=== PATIENT | male | born 1990 | race Caucasian/White ===

== ENCOUNTER 2022-03-19 12:07 | Emergency (ER) | payer OTHER, SELFPAY ==
[2022-03-19 12:15] VITALS: BP 113/76; PULSE 79; RESP 18; TEMP 36.9; O2SAT 99
--- NOTE | 2022-03-19 12:44 | ED.NAVMDI ---
HPI - Nausea/Vomiting/Diarrhea General Chief complaint: Nausea/Vomiting/Diarrhea Stated complaint: nausea, diahrrea Time Seen by Provider: 03/19/22 12:40 Source: patient, RN notes reviewed and old records reviewed History of Present Illness HPI Narrative: 32-year-old male who presents to [facility] care with complaints of nausea and vomiting and diarrhea, and fatigue for the past 2 days, he states also that his son has had similar symptoms. Patient reports he has vomited once today and has had 5 loose stools had temperature of 99.9F this morning. Patient report that he has not had COVID vaccinations or Flu shot this year. Patient denies any body aches at this time or any acute abdominal pain. He states that he took home COVID test yesterday that was negative. MD elicited complaint: nausea, vomiting and diarrhea Related Data Allergies Allergy/AdvReac Type Severity Reaction Status Date / Time amoxicillin Allergy Severe Anaphylactic Verified 06/11/19 18:49 Shock Penicillins Allergy Severe Anaphylactic Verified 06/11/19 18:49 Shock Sulfa (Sulfonamide Allergy Unknown Verified 06/11/19 18:49 Antibiotics) Grass Allergy Unknown Uncoded 06/11/19 18:49 Review of Systems Review of Systems: CONSTITUTIONAL: Low grade temperature fever,no chills, or sweats. EYES: Denies visual changes, redness, or discharge. ENT: Denies rhinorrhea, congestion, sore throat, or otalgia. CARDIOVASCULAR: Denies chest pain, palpitations, or edema. RESPIRATORY: Denies cough or dyspnea. GASTROINTESTINAL: Denies acute abdominal pain,positive for nausea, vomiting, or diarrhea. GENITOURINARY: Denies dysuria or hematuria. SKIN: Denies rash or itching. MUSCULOSKELETAL: Denies back pain, joint pain, or myalgia. NEUROLOGIC: Denies headache, numbness, or weakness, reports fatigue PSYCHIATRIC: Denies anxiety or depression. All systems reviewed & are unremarkable except as noted in HPI and below PMFSH Past Medical History Medical History (Updated 03/20/22 @ 10:19 by Teresita Cole NP) No significant past medical history Surgical History Surgical History (Updated 03/20/22 @ 10:17 by Teresita Cole NP) History of inguinal hernia repair, bilateral History of tonsillectomy and adenoidectomy Social History Social History (Updated 03/20/22 @ 10:17 by Teresita Cole NP) Smoking status: Current every day smoker Tobacco type: cigarettes Alcohol intake: unknown Substance use type: does not use Living arrangements: with family Gender identity (if verbalized by the patient): Male Comments At time of signature, agree with nursing past medical, surgical, social and family history. There is no relevant family history pertinent to the presenting complaint Exam Narrative: GENERAL:ill-appearing, well-nourished, and in no acute distress. HEAD: Normocephalic, atraumatic. EYES: PERRLA and EOMI. ENT: Nares clear, no rhinorrhea or epistaxis. Mucous membranes moist.TM's normal with good light reflex, throat pink with no lesions tonsil absent. NECK: Supple.no lymphadenopathy CHEST: Clear to auscultation. No respiratory distress.SAO2 99% on room air HEART: Regular rate and rhythm. No murmur heard. Normal peripheral pulses. ABDOMEN: Soft, nontender to palpation, no McBurney point tenderness, nondistended, active bowel sounds. no CVA tenderness on exam EXTREMITIES: Normal range of motion. No edema. SKIN: Warm, dry, no rash. NEURO: No focal deficits. Alert and oriented x3. Course Course Level of Care: Express Care Visit Vital Signs Vital signs: Vital Signs Temperature 36.9 C 03/19/22 12:15 Pulse Rate 79 03/19/22 12:15 Respiratory Rate 18 03/19/22 12:15 Blood Pressure 113/76 03/19/22 12:15 Pulse Oximetry 99 03/19/22 12:15 Temperature 36.9 C 03/19/22 12:15 Pulse Rate 79 03/19/22 12:15 Respiratory Rate 18 03/19/22 12:15 Blood Pressure 113/76 03/19/22 12:15 Pulse Oximetry 99 03/19/22 12:15 MDM - Nausea/
== END 2022-03-19 13:26 | disposition home or self-care (01) ==
PROVIDERS: Emergency Provider Registered Nurse
DX: K52.9 Noninfective gastroenteritis and colitis, unspecified (principal); F17.210 Nicotine dependence, cigarettes, uncomplicated
CPT/HCPCS: 87804; 99213; G0463

== ENCOUNTER 2022-08-15 19:13 | Emergency (ER) | payer OTHER, SELFPAY ==
[2022-08-15 19:18] VITALS: BP 123/60; PULSE 87; RESP 16; TEMP 37.2; O2SAT 98
--- NOTE | 2022-08-15 19:31 | ED.DENTAL ---
HPI - Dental/Oral General Chief complaint: Dental/Oral Stated complaint: dental prob Time Seen by Provider: 08/15/22 19:25 Source: patient, RN notes reviewed and old records reviewed Mode of arrival: ambulatory Limitations: no limitations History of Present Illness HPI Narrative: 32-year-old male presents to [facility] care with complaints of dental pain to the upper right gums with some redness of gums no acute drainage noted. Patient reports that he has taken some Ibuprofen for his discomfort which helps minimally. Patient reports that he had teeth pulled from his right upper gums recently and has reported bone spurs in his gums with some raised areas of tissue along right gums noted but no bleeding or drainage noted. MD Complaint: tooth pain (lower teeth decay noted of all remaining bottom teeth right upper gums swollen) Severity scale (1-10): 7 Treatment prior to arrival: oral analgesic and other Related Data Allergies Allergy/AdvReac Type Severity Reaction Status Date / Time amoxicillin Allergy Severe Anaphylactic Verified 06/11/19 18:49 Shock Penicillins Allergy Severe Anaphylactic Verified 06/11/19 18:49 Shock Sulfa (Sulfonamide Allergy Unknown Unknown Verified 08/15/22 19:28 Antibiotics) Grass Allergy Unknown Unknown Uncoded 08/15/22 19:28 Review of Systems Review of Systems: CONSTITUTIONAL: low grade fever, chills, or sweats. EYES: Denies visual changes, redness, or discharge. ENT: Denies rhinorrhea, congestion, sore throat, or otalgia.positive for dental pain along right upper gum where had recent dental extraction with dental caries of all remaining bottom teeth. CARDIOVASCULAR: Denies chest pain, palpitations, or edema. RESPIRATORY: Denies cough or dyspnea. GASTROINTESTINAL: Denies abdominal pain, nausea, vomiting, or diarrhea. GENITOURINARY: Denies dysuria or hematuria. SKIN: Denies rash or itching. MUSCULOSKELETAL: Denies back pain, joint pain, or myalgia. NEUROLOGIC: Denies headache, numbness, or weakness. PSYCHIATRIC: Denies anxiety or depression. All systems reviewed & are unremarkable except as noted in HPI and below PMFSH Past Medical History Medical History (Updated 08/15/22 @ 19:47 by Teresita Cole NP) History of dental problems Surgical History Surgical History History of inguinal hernia repair, bilateral History of tonsillectomy and adenoidectomy Social History Social History Smoking status: Current every day smoker Tobacco type: cigarettes Alcohol intake: unknown Substance use type: does not use Gender identity (if verbalized by the patient): Male Comments At time of signature, agree with nursing past medical, surgical, social and family history. There is no relevant family history pertinent to the presenting complaint Exam Narrative: GENERAL: Well-appearing, fair-nourished, and in no acute distress. HEAD: Normocephalic, atraumatic. EYES: PERRLA and EOMI. ENT: Nares clear, no rhinorrhea or epistaxis. Mucous membranes moist.TM's normal with good light reflex, throat pink with no lesions or swelling uvula midline, right upper gum with raised tissue areas along gums and mild redness with reported discomfort, no drainage or bleeding from gums, remaining bottom teeth in front with decay.Patient reports dental appointment in August to have remaining teeth extracted, no facial swelling noted or any difficulty with breathing or swallowing noted, no Tirso angina. NECK: Supple.no lymphadenopathy CHEST: Clear to auscultation. No respiratory distress.SAO2 98% on room air HEART: Regular rate and rhythm. No murmur heard. Normal peripheral pulses. ABDOMEN: Soft, nontender, nondistended, normal active bowel sounds. EXTREMITIES: Normal range of motion. No edema. SKIN: Warm, dry, no rash. NEURO: No focal deficits. Alert and oriented x3. Course Course Level of Care: Express
== END 2022-08-15 19:50 | disposition home or self-care (01) ==
PROVIDERS: Emergency Provider Registered Nurse
DX: K08.89 Other specified disorders of teeth and supporting structures (principal); F17.210 Nicotine dependence, cigarettes, uncomplicated
CPT/HCPCS: 99213; G0463

== ENCOUNTER 2022-11-10 11:37 | Emergency (ER) | payer OTHER, SELFPAY ==
[2022-11-10 11:42] VITALS: BP 120/72; PULSE 103; RESP 14; TEMP 37; O2SAT 100
--- NOTE | 2022-11-10 12:28 | ED.URI ---
HPI - URI/Sore Throat General Chief Complaint: Upper Respiratory Infection Stated Complaint: Cough/Chest Congestion Time Seen by Provider: 11/10/22 12:25 Source: patient, RN notes reviewed and old records reviewed Mode of arrival: ambulatory Limitations: no limitations History of Present Illness HPI Narrative: 32 year old male who presets to express care with complaints of 4 day history of cough, shortness of breath, body aches, chills and fevers up to 101F. Patient reports some tightness in his upper chest with cough, patient has long history of tobacco abuse since age 16 years old.Patient has been taking some DayQuil and NyQuil and Ibuprofen for his symptoms. Patient has not had Covid vaccinations or flu shot. MD elicited complaint: fever, cough, rhinorrhea, nasal congestion and other (body aches) Pain scale (0-10): 7 Treatments prior to arrival: ibuprofen and other (DayQuil and NyQuil) Related Data Allergies Allergy/AdvReac Type Severity Reaction Status Date / Time amoxicillin Allergy Severe Anaphylactic Verified 11/10/22 11:57 Shock Penicillins Allergy Severe Anaphylactic Verified 11/10/22 11:57 Shock grass pollen Allergy Unknown Unknown Verified 11/10/22 11:57 Sulfa (Sulfonamide Allergy Unknown Unknown Verified 11/10/22 11:57 Antibiotics) Review of Systems Review of Systems: CONSTITUTIONAL: Reports malaise, chills, sweats, or fever. EYES: Denies visual changes, redness, or discharge. ENT: Reports rhinorrhea, congestion, sinus pain, no otalgia and sore throat. CARDIOVASCULAR: Denies chest pain, palpitations, or edema.reports upper chest tightness with cough RESPIRATORY: Reports cough.? Reports dyspnea with exertion GASTROINTESTINAL: Denies abdominal pain, nausea, vomiting, diarrhea SKIN: Denies rash or itching. MUSCULOSKELETAL: Reports myalgia. NEUROLOGIC: Denies headache. All systems reviewed & are unremarkable except as noted in HPI and below PMFSH Past Medical History Medical History History of dental problems Surgical History Surgical History History of inguinal hernia repair, bilateral History of tonsillectomy and adenoidectomy Social History Social History (Updated 11/19/22 @ 15:02 by Teresita Cole NP) Smoking packs per day: 1 Smoking cigarettes per day: 20.0 Years smoked: 16 Smoking pack-years: 16.00 Smoking status: Current every day smoker Tobacco type: cigarettes Alcohol intake: unknown Substance use type: does not use Gender identity (if verbalized by the patient): Male Comments At time of signature, agree with nursing past medical, surgical, social and family history. There is no relevant family history pertinent to the presenting complaint Exam Narrative: GENERAL: Well-appearing, well-nourished, and in no acute distress. HEAD: Normocephalic EYES: PERRLA, conjunctivae clear ENT: Nares clear, turbinates edematous and erythematous, clear discharge. Mucous membranes moist. TM pearly rinaldi with dull light reflex bilaterally; no tragal tenderness. Oropharynx erythematous without lesions. Tonsils not present and throat without exudate, no drooling, no hoarseness, no trismus, uvula midline.post nasal drainage. NECK: Supple. No lymphadenopathy CHEST: Coarse with some crackles which clear with cough on auscultation, breath sounds equal. No wheezing, rhonchi, rales, or stridor. No respiratory distress, speaks in full sentences. loose cough SAO2 100% on room air HEART: Regular rate and rhythm. No murmur heard. SKIN: Warm, dry, no rash. NEURO: Alert and oriented x3. PSYCH: Normal mood and affect Course Course Emergency Course: Patient is aware of diagnosis, understands and agrees to treatment plan.? Anticipatory guidance given.? Patient agrees to follow-up as directed and is aware of reasons to seek care at the emergency department
== END 2022-11-10 12:38 | disposition home or self-care (01) ==
PROVIDERS: Emergency Provider Registered Nurse
DX: J10.1 Influenza due to other identified influenza virus with other respiratory manifestations (principal); F17.210 Nicotine dependence, cigarettes, uncomplicated
CPT/HCPCS: 87804; 99213; G0463

== ENCOUNTER 2023-02-23 18:15 | Emergency (ER) | payer OTHER, SELFPAY ==
[2023-02-23 18:28] VITALS: BP 112/67; PULSE 72; RESP 16; TEMP 36.8; O2SAT 100
--- NOTE | 2023-02-23 19:08 | ED.GENADULT ---
HPI - General Adult General Chief complaint: Upper Respiratory Infection Stated complaint: Sore Throat Source: patient Mode of arrival: ambulatory Limitations: no limitations History of Present Illness HPI narrative: PATIENT PRESENTS FOR THE SHE SMOKES A SYMPTOM ONSET A FEW DAYS AGO. NO FEVER, CHILLS, NAUSEA, VOMITING. HIS SON IS BEING EVALUATED HERE FOR SIMILAR SYMPTOMS. HE IS TAKING SOME ALEVE DUE TO RECENT TOOTH EXTRACTIONS. HE SMOKES 1 PPD. HISTORY OF TONSILLECTOMY AND ADENOIDECTOMY. Related Data Allergies Allergy/AdvReac Type Severity Reaction Status Date / Time amoxicillin Allergy Severe Anaphylactic Verified 11/10/22 11:57 Shock Penicillins Allergy Severe Anaphylactic Verified 11/10/22 11:57 Shock grass pollen Allergy Unknown Unknown Verified 11/10/22 11:57 Sulfa (Sulfonamide Allergy Unknown Unknown Verified 11/10/22 11:57 Antibiotics) Review of Systems Review of Systems: CONSTITUTIONAL: DENIES FEVER, CHILLS, OR SWEATS. EYES: DENIES VISUAL CHANGES, REDNESS, OR DISCHARGE. ENT: REPORTS SORE THROAT. DENIES RHINORRHEA, CONGESTION, OR OTALGIA. CARDIOVASCULAR: DENIES CHEST PAIN, PALPITATIONS, OR EDEMA. RESPIRATORY: DENIES COUGH OR DYSPNEA. GASTROINTESTINAL: DENIES ABDOMINAL PAIN, NAUSEA, VOMITING, OR DIARRHEA. GENITOURINARY: DENIES DYSURIA OR HEMATURIA. SKIN: DENIES RASH OR ITCHING. MUSCULOSKELETAL: DENIES BACK PAIN, JOINT PAIN, OR MYALGIA. NEUROLOGIC: DENIES HEADACHE, NUMBNESS, DIZZINESS, OR WEAKNESS. PSYCHIATRIC: DENIES ANXIETY OR DEPRESSION. [facility] Past Medical History Medical History History of dental problems Surgical History Surgical History History of inguinal hernia repair, bilateral History of tonsillectomy and adenoidectomy Family History Family History Mother Family history non-contributory Social History Social History Smoking packs per day: 1 Smoking cigarettes per day: 20.0 Years smoked: 16 Smoking pack-years: 16.00 Smoking status: Current every day smoker Tobacco type: cigarettes Alcohol intake: unknown Substance use type: does not use Living arrangements: with family Gender identity (if verbalized by the patient): Male Exam Narrative: GENERAL: WELL-APPEARING, WELL-NOURISHED, AND IN NO ACUTE DISTRESS. HEAD: NORMOCEPHALIC, ATRAUMATIC. EYES: PERRLA AND EOMI. ENT: NARES CLEAR, NO RHINORRHEA OR EPISTAXIS. MUCOUS MEMBRANES MOIST. OROPHARYNX WITHOUT TONSILLAR HYPERTROPHY EXUDATE OR OTHER LESIONS. MISSING MULTIPLE TEETH. BILATERAL TMS PEARLY DIALLO NONBULGING NECK: SUPPLE. NO ADENOPATHY OR MASSES. NO CAROTID BRUITS OR JVD CHEST: CLEAR TO AUSCULTATION. NO RESPIRATORY DISTRESS. NO WHEEZES RALES OR RHONCHI HEART: REGULAR RATE AND RHYTHM. NO MURMUR HEARD. NORMAL PERIPHERAL PULSES. ABDOMEN: SOFT, NONTENDER, NONDISTENDED, NORMAL ACTIVE BOWEL SOUNDS. EXTREMITIES: NORMAL RANGE OF MOTION. NO EDEMA. SKIN: WARM, DRY, NO RASH. NEURO: NO FOCAL DEFICITS. ALERT AND ORIENTED X3. PSYCH: NORMAL MOOD AND AFFECT. Course Course Emergency Course: THIS IS A 33-YEAR-OLD MALE WHO PRESENTED FOR EVALUATION OF SORE THROAT. RAPID STREP NEGATIVE. HIS SON STREP WAS ALSO NEGATIVE. LIKELY VIRAL IN ORIGIN. INCREASE HYDRATION. [id number] AGENTS FOR SYMPTOM MANAGEMENT. ADVISED ON SMOKING CESSATION. FOLLOW UP WITH PRIMARY PROVIDER. GO TO THE ER FOR WORSENING SYMPTOMS. PATIENT IN AGREEMENT PLAN OF CARE Level of Care: Express Care Visit Vital Signs Vital signs: Vital Signs Temperature 36.8 C 02/23/23 18:28 Pulse Rate 72 02/23/23 18:28 Respiratory Rate 16 02/23/23 18:28 Blood Pressure 112/67 02/23/23 18:28 Pulse Oximetry 100 02/23/23 18:28 Oxygen Delivery Room Air 02/23/23 18:28 Temperature 36.8 C 02/23/23 18
== END 2023-02-23 19:14 | disposition home or self-care (01) ==
PROVIDERS: Emergency Provider Nurse Practitioner
DX: J02.9 Acute pharyngitis, unspecified (principal); F17.210 Nicotine dependence, cigarettes, uncomplicated
CPT/HCPCS: 87081; 87880; 99213; G0463

== ENCOUNTER 2023-08-01 08:45 | Emergency (ER) | payer OTHER, SELFPAY ==
[2023-08-01 08:50] VITALS: BP 111/73; PULSE 70; RESP 16; TEMP 36.1; O2SAT 100
--- NOTE | 2023-08-01 09:05 | ED.SKABFB ---
HPI - Skin/Abscess/Foreign Bdy General Chief complaint: Skin/Abscess/Foreign Body Stated complaint: Rash Related Data Allergies Allergy/AdvReac Type Severity Reaction Status Date / Time amoxicillin Allergy Severe Anaphylactic Verified 08/01/23 09:07 Shock Penicillins Allergy Severe Anaphylactic Verified 08/01/23 09:07 Shock grass pollen Allergy Unknown Unknown Verified 08/01/23 09:07 Sulfa (Sulfonamide Allergy Unknown Unknown Verified 08/01/23 09:07 Antibiotics) [facility] Past Medical History Medical History History of dental problems Surgical History Surgical History History of inguinal hernia repair, bilateral History of tonsillectomy and adenoidectomy Family History Family History Mother Family history non-contributory Social History Social History Smoking packs per day: 1 Smoking cigarettes per day: 20.0 Years smoked: 16 Smoking pack-years: 16.00 Smoking status: Current every day smoker Tobacco type: cigarettes Alcohol intake: unknown Substance use type: does not use Living arrangements: with family Gender identity (if verbalized by the patient): Male Course Course Level of Care: Express Care Visit Vital Signs Vital signs: Vital Signs Temperature 36.1 C L 08/01/23 08:50 Pulse Rate 70 08/01/23 08:50 Respiratory Rate 16 08/01/23 08:50 Blood Pressure 111/73 08/01/23 08:50 Pulse Oximetry 100 08/01/23 08:50 Oxygen Delivery Room Air 08/01/23 08:50 Temperature 36.1 C L 08/01/23 08:50 Pulse Rate 70 08/01/23 08:50 Respiratory Rate 16 08/01/23 08:50 Blood Pressure 111/73 08/01/23 08:50 Pulse Oximetry 100 08/01/23 08:50 Oxygen Delivery Room Air 08/01/23 08:50 Discharge Plan Discharge Clinical Impression: Insect bites, Bites, chigger Patient Disposition: Home, Self-Care Condition: Stable Instructions: Chigger Bite (ED) Additional Instructions: ZYRTEC, CLARITIN, XYZAL DAILY AND THEN BENADRYL AT BEDTIME FOR ITCHING. CONTINUE HYDROCORTISONE CREAM TO AREA TAKE PREDNISONE EVERY MORNING WITH FOOD UNTIL GONE FOLLOW-UP WITH PRIMARY CARE PROVIDER NEEDED MONITOR FOR ANY SIGNS OR SYMPTOMS OF INFECTION. Prescriptions: New prednisone 20 mg tablet 40 mg PO DAILY 5 Days Qty: 10 0RF Follow-up/Referrals: PHYSICIAN,RADIO P[employer]AL[facility] [Primary Care Provider] -
== END 2023-08-01 09:10 | disposition home or self-care (01) ==
PROVIDERS: Emergency Provider Nurse Practitioner Family
DX: B88.0 Other acariasis (principal); F17.210 Nicotine dependence, cigarettes, uncomplicated
CPT/HCPCS: 99213; G0463

== ENCOUNTER 2024-01-04 08:25 | Emergency (ER) | payer OTHER, SELFPAY ==
[2024-01-04 08:32] VITALS: BP 118/89; PULSE 88; RESP 20; TEMP 36.9; O2SAT 100
--- NOTE | 2024-01-04 09:08 | ED.URI ---
HPI - URI/Sore Throat General Chief Complaint: Upper Respiratory Infection Stated Complaint: sinus/diarrhea/hard to breathe Time Seen by Provider: 01/04/24 09:00 Source: patient, RN notes reviewed and old records reviewed Mode of arrival: ambulatory Limitations: no limitations History of Present Illness HPI Narrative: 33 year old male who presents to [facility] care with complaints of feeling stuffed up, short of breath, cough, nausea and vomiting X1 with diarrhea. with symptoms starting on Wednesday this being day 4 of his symptoms. Patient reports that he has been taking OTC cold and flu medication. Patient reports that he knows of no fevers, reports fatigue and states no body aches, states just 'feels drained'. MD elicited complaint: cough, rhinorrhea, nasal congestion and other (diarrhea) Pertinent past history: seasonal allergies and other (tobacco abuse) Onset (ago): day(s) (4) Severity: moderate Description of mucous: clear Able to tolerate fluids by mouth: Yes Treatments prior to arrival: other (cold and flu medication) Related Data Allergies Allergy/AdvReac Type Severity Reaction Status Date / Time amoxicillin Allergy Severe Anaphylactic Verified 01/04/24 09:13 Shock Penicillins Allergy Severe Anaphylactic Verified 01/04/24 09:13 Shock grass pollen Allergy Unknown Unknown Verified 01/04/24 09:13 Sulfa (Sulfonamide Allergy Unknown Unknown Verified 01/04/24 09:13 Antibiotics) Review of Systems Review of Systems: CONSTITUTIONAL:Reports malaise, no chills, sweats, or fever. EYES: Denies visual changes, redness, or discharge. ENT: Reports rhinorrhea, congestion, sinus pain, no otalgia and positive for sore throat. CARDIOVASCULAR: Denies chest pain, palpitations, or edema. RESPIRATORY: Reports cough.? Reports some dyspnea. GASTROINTESTINAL: Denies abdominal pain, reports some nausea, vomiting, diarrhea SKIN: Denies rash or itching. MUSCULOSKELETAL: Denies myalgia. NEUROLOGIC: Denies headache. All systems reviewed & are unremarkable except as noted in HPI and below PMFSH Past Medical History Medical History (Updated 01/06/24 @ 09:06 by Teresita Cole NP) History of dental problems Seasonal allergies Tobacco abuse Surgical History Surgical History (Updated 01/06/24 @ 09:07 by Teresita Cole NP) History of inguinal hernia repair, bilateral History of tonsillectomy and adenoidectomy Hx of hemorrhoidectomy Family History Family History Mother Family history non-contributory Social History Social History Smoking packs per day: 1 Smoking cigarettes per day: 20.0 Years smoked: 16 Smoking pack-years: 16.00 Smoking status: Current every day smoker Tobacco type: cigarettes Alcohol intake: unknown Substance use type: does not use Living arrangements: with family Gender identity (if verbalized by the patient): Male Comments At time of signature, agree with nursing past medical, surgical, social and family history. There is no relevant family history pertinent to the presenting complaint Exam Narrative: GENERAL: Well-appearing, well-nourished, and in no acute distress. HEAD: Normocephalic EYES: PERRLA, conjunctivae clear ENT: Nares clear, turbinates edematous and erythematous, yellow discharge. Mucous membranes moist. TM pearly rinaldi with dull light reflex bilaterally; no tragal tenderness. Oropharynx erythematous without lesions. Tonsils not present and throat without exudate, no drooling, no hoarseness, no trismus, uvula midline,post nasal drainage NECK: Supple. No lymphadenopathy CHEST: Clear to auscultation, breath sounds equal. No wheezing, rhonchi, rales, or stridor. No respiratory distress, speaks in full sentences.cough SAO2 100% on room air HEART: Regular rate and rhythm. No murmur heard. SKIN: Warm, dry, no rash. NEURO: Lio
== END 2024-01-04 09:30 | disposition home or self-care (01) ==
PROVIDERS: Emergency Provider Registered Nurse
DX: J06.9 Acute upper respiratory infection, unspecified (principal); Z20.822 Contact with and (suspected) exposure to COVID-19; F17.210 Nicotine dependence, cigarettes, uncomplicated
CPT/HCPCS: 87081; 87426; 87804; 87880; 99213; G0463

== ENCOUNTER 2024-02-06 14:14 | Emergency (ER) | payer OTHER, SELFPAY ==
[2024-02-06 14:18] VITALS: BP 120/76; PULSE 98; RESP 20; TEMP 36.6; O2SAT 98
--- NOTE | 2024-02-06 14:30 | ED.URI ---
HPI - URI/Sore Throat General Chief Complaint: Upper Respiratory Infection Stated Complaint: nose issues Time Seen by Provider: 02/06/24 14:30 Source: patient, RN notes reviewed and old records reviewed Mode of arrival: ambulatory Limitations: no limitations History of Present Illness HPI Narrative: 34 year old male presents to express care with complaints of sinus congestion,pressure in nose,swelling redness, burning and patches of white tissue in nose.for the past 2 days Patient reports is having yellow sinus drainage with some blood streaks.. Patient reports symptoms started after snorting cocaine the night before. Patient states that he was treated for sinus infection recently but doesn't think it had completed cleared from before. 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 MD elicited complaint: cough, rhinorrhea, nasal congestion and sinus pain Onset (ago): day(s) (2) Pain scale (0-10): 9 Description of mucous: yellow and bloody Able to tolerate fluids by mouth: Yes Treatments prior to arrival: other (saline spray) Related Data Allergies Allergy/AdvReac Type Severity Reaction Status Date / Time amoxicillin Allergy Severe Anaphylactic Verified 02/06/24 14:29 Shock Penicillins Allergy Severe Anaphylactic Verified 02/06/24 14:29 Shock grass pollen Allergy Unknown Unknown Verified 02/06/24 14:29 Sulfa (Sulfonamide Allergy Unknown Unknown Verified 02/06/24 14:29 Antibiotics) Review of Systems Review of Systems: CONSTITUTIONAL: Denies malaise, chills, sweats, or fever. EYES: Denies visual changes, redness, or discharge. ENT: Reports rhinorrhea, congestion, sinus pain, no otalgia and no sore throat. CARDIOVASCULAR: Denies chest pain, palpitations, or edema. RESPIRATORY: Reports no acute cough.? Denies dyspnea. GASTROINTESTINAL: Denies abdominal pain, nausea, vomiting, diarrhea SKIN: Denies rash or itching. MUSCULOSKELETAL: Denies myalgia. NEUROLOGIC: reports headache. All systems reviewed & are unremarkable except as noted in HPI and below PMFSH Past Medical History Medical History History of dental problems Seasonal allergies Tobacco abuse Surgical History Surgical History History of inguinal hernia repair, bilateral History of tonsillectomy and adenoidectomy Hx of hemorrhoidectomy Family History Family History Mother Family history non-contributory Social History Social History Smoking packs per day: 1 Smoking cigarettes per day: 20.0 Years smoked: 16 Smoking pack-years: 16.00 Smoking status: Current every day smoker Tobacco type: cigarettes Alcohol intake: current Alcohol use details: social Substance use type: former substance user 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 There is no relevant family history pertinent to the presenting complaint Exam Narrative: GENERAL: Well-appearing, well-nourished, and in no acute distress. HEAD: Normocephalic EYES: PERRLA, conjunctivae clear ENT: Nares red swollen with patches of white, turbinates edematous and erythematous,yellow discharge, blood streaks,. Mucous membranes moist. TM pearly rinaldi with dull light reflex bilaterally; no tragal tenderness. Oropharynx erythematous without lesions. Tonsils not present and throat without exudate, no drooling, no hoarseness, no trismus, uvula midline.post nasal drainage NECK: Supple. No lymphadenopathy CHEST: Clear
== END 2024-02-06 14:55 | disposition home or self-care (01) ==
PROVIDERS: Emergency Provider Registered Nurse
DX: J32.9 Chronic sinusitis, unspecified (principal); F17.210 Nicotine dependence, cigarettes, uncomplicated
CPT/HCPCS: 99213; G0463

== ENCOUNTER 2024-09-04 15:12 | Emergency (ER) | payer OTHER, SELFPAY ==
--- NOTE | ~2024-09-04 | XR_ITS ---
CHEST RADIOGRAPH, PA AND LATERAL CLINICAL HISTORY: cough for 2 weeks, pneumonia exposure . COMPARISON: None available TECHNIQUE: PA and lateral views of the chest. FINDINGS The cardiomediastinal silhouette is unremarkable. The lungs are clear. Visualized osseous structures and soft tissues are unremarkable. IMPRESSION: No focal infiltrate or effusion. Reviewed, dictated and finalized at location A.
[2024-09-04 15:20] VITALS: BP 135/88; PULSE 95; RESP 20; TEMP 37.1; O2SAT 99
[2024-09-04 15:29] VITALS: BP 135/88; PULSE 95; RESP 20; TEMP 37.1; O2SAT 99
--- NOTE | 2024-09-04 15:52 | ED.URI ---
HPI - URI/Sore Throat General Chief Complaint: Upper Respiratory Infection Stated Complaint: Chest Pain/Shortness of Breath/Cough Time Seen by Provider: 09/04/24 15:52 Source: patient Mode of arrival: ambulatory Limitations: no limitations History of Present Illness HPI Narrative: 34-year-old male presents with complaint of nasal congestion, sinus pressure, postnasal drainage, cough. Patient seen in ER on August 24. Was given Levaquin. States 2 days after he finished antibiotics symptoms all came back. Cough worse now. Reports shortness of breath with exertion. Patient is a current everyday smoker. Has had recent exposure to pneumonia. Afebrile. All systems reviewed and negative except as noted above. Related Data Allergies Allergy/AdvReac Type Severity Reaction Status Date / Time amoxicillin Allergy Severe Anaphylactic Verified 09/04/24 15:21 Shock Penicillins Allergy Severe Anaphylactic Verified 09/04/24 15:21 Shock grass pollen Allergy Unknown Unknown Verified 09/04/24 15:21 Sulfa (Sulfonamide Allergy Unknown Unknown Verified 09/04/24 15:21 Antibiotics) Review of Systems Review of Systems: CONSTITUTIONAL: Denies fever, chills, or sweats. EYES: Denies visual changes, redness, or discharge. ENT: Reports rhinorrhea, congestion, sinus pressure. Denies sore throat, or otalgia. CARDIOVASCULAR: Denies chest pain, palpitations, or edema. RESPIRATORY: reports cough and dyspnea with exertion. GASTROINTESTINAL: Denies abdominal pain, nausea, vomiting, or diarrhea. GENITOURINARY: Denies dysuria or hematuria. SKIN: Denies rash or itching. MUSCULOSKELETAL: Denies back pain, joint pain, or myalgia. NEUROLOGIC: Denies headache, numbness, or weakness. PSYCHIATRIC: Denies anxiety or depression. All other systems reviewed are negative, except as documented in HPI. [facility] Past Medical History Medical History History of dental problems Seasonal allergies Tobacco abuse Surgical History Surgical History History of inguinal hernia repair, bilateral History of tonsillectomy and adenoidectomy Hx of hemorrhoidectomy Family History Family History Mother Family history non-contributory Social History Social History Smoking packs per day: 1 Smoking cigarettes per day: 20.0 Years smoked: 16 Smoking pack-years: 16.00 Smoking status: Current every day smoker Tobacco type: cigarettes Alcohol intake: current Alcohol use details: social Substance use type: former substance user 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 There is no relevant family history pertinent to the presenting complaint. Exam Narrative: GENERAL: This is a well-nourished, well-developed patient, in no apparent distress. HEAD: normocephalic, atraumatic. EYES: PERRL. Sclera clear/white. Vision is grossly intact. EARS: External ears normal, auditory canals clear and without drainage, TMs normal without perforation. Hearing grossly intact. NOSE: External nose normal with purulent nasal drainage, moderate congestion, maxillary sinus tenderness on palpation THROAT: Mucous membranes moist, postnasal drainage. NECK: Neck supple, non-tender without lymphadenopathy, masses or thyromegaly. CARDIOVASCULAR: Regular rate and rhythm without murmurs, gallops, or rubs. RESPIRATORY: Clear to auscultation. Breath sounds equal bilaterally. No wheezes, rales, or rhonchi. SKIN: warm, Dry, intact with no suspicious lesions or rash, good texture and turgor. NEURO: awake, alert, and oriented to person, place and time. There were
== END 2024-09-04 16:20 | disposition home or self-care (01) ==
PROVIDERS: Emergency Provider Nurse Practitioner Family; PCP Physician Assistant
DX: J01.90 Acute sinusitis, unspecified (principal); J20.9 Acute bronchitis, unspecified; F17.210 Nicotine dependence, cigarettes, uncomplicated
CPT/HCPCS: 71046; 99213; G0463

== ENCOUNTER 2025-05-11 14:37 | Emergency (ER) | payer OTHER, SELFPAY ==
[2025-05-11 14:41] VITALS: BP 128/79; PULSE 83; RESP 16; TEMP 37.3; O2SAT 99
--- OUTSIDE RECORDS SUMMARY | 2025-05-11 14:41 | XMS_ITS | Referral Summary ---
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 Call 911 after use. 1 Syringe 5 7 Active traMADoL (ULTRAM) 50 mg tablet Take 1 tablet (50 mg total) by mouth every 6 (six) hours P.r.n. pain not relieved by naproxen alone. Take with food. Collaborating physician Henrik De Santiago MD 15 tablet 3 Active Additional Information Patient not taking.Reported on 10/04/2024 naproxen (NAPROSYN) 500 mg tablet Take 1 tablet (500 mg total) by mouth 2 (two) times a day with meals P.r.n. pain. Collaborating physician Henrik De Santiago MD 30 tablet 3 Active Additional Information Patient not taking.Reported on 10/04/2024 tiZANidine (ZANAFLEX) 4 mg tablet Take 1 tablet (4 mg total) by mouth every 6 (six) hours as needed (Take as directed to relax muscles) Collaborating physician Henrik De Santiago MD 20 tablet 3 Active Additional Information Patient not taking.Reported on 10/04/2024 pseudoephedrin e (SUDAFED) 30 mg tabletIndicati ons:Nasal Congestion Take 1 tablet (30 mg total) by mouth every 4 (four) hours as needed for congestion 30 tablet 4 Active fluticasone propionate (FLONASE) 50 mcg/actuation nasal spray Administer 1 spray into affected nostril(s) daily 4 Active Active Problems Problem Noted Date Diagnosed Date Acquired perforation of nasal septum 05/18/2024 Assessment & Plan (05/18/2024 11:28 AM CDT): Nasal saline spray (Simply saline, Little Remedies, [place], [place]) 2 second sprays or 2 squeezes into each nostril while looking down over the sink, sniff in and spit out Doxycycline twice daily, avoid sun exposure while on this medication Follow up in 6 weeks to recheck Work hard on smoking cessation, as a septal perforation repair will heal best without nicotine use Avoid nose blowing Avoid Flonase Personal interpretation of CT Facial bone: soft tissue fullness in the anterior nasal cavity bilaterally, right OMC obstruction and moderate mucosal thickening of the right maxillary sinus Chronic maxillary sinusitis 05/18/2024 Assessment & Plan (10/04/2024 3:13 PM HOG DRIVER): Nasal saline spray (Simply saline, Little Remedies, [place], [place]) 2 second sprays or 2 squeezes into each nostril while looking down over the sink, sniff in and spit out 3-4 times daily Doxycycline twice daily, avoid sun exposure while on this medication Work hard on continued smoking cessation, as a septal perforation repair will heal best without nicotine use Avoid nose blowing Avoid Flonase Assessment & Plan (05/18/2024 11:29 AM CDT): Nasal saline spray (Simply saline, Little Remedies, [place], [place]) 2 second sprays or 2 squeezes into each nostril while looking down over the sink, sniff in and spit out Doxycycline twice daily, avoid sun exposure while on this medication Follow up in 6 weeks to recheck Work hard on smoking cessation, as a septal perforation repair will heal best without nicotine use Avoid nose blowing Cervical strain, acute, initial encounter 2022 Strain of thoracic back region 04/29/2023 Influenzal acute upper respiratory infection Acute viral bronchitis 11/11/2022 Inguinal pain 04/15/2017 Overview (04/23/2017): Inguinal pain Inguinal hernia 03/31/2017 Overview (04/23/2017): Inguinal hernia Chest wall pain 03/23/2017 Overview (04/23/2017): Chest pain in adult Left inguinal hernia 03/23/2017 Overview (04/23/2017): Left inguinal hernia Diarrhea 03/23/2017 Overview (04/23/2017): Diarrhea, unspecified type Hemorrhoids without complication 01/01/2017 Overview (03/04/2017): Hemorrhoids without complication Screening status 01/01/2017 Overview (03/04/2017): Encounter for screening examination for sexually transmitted disease Hydrocele 08/08/2014 Overview (03/04/2017): Hydrocele Calculus of kidney 12/01/2010 Overview (03/04/2017): Nephrolithiasis Anxiety disorder 11/29/2007 Overview (03/04/2017): Anxiety disorder Immunizations Immunization Administration Dates Next Due Hep B Vaccine 02/08/1997,08/16/1996,06/15/1996 Hep B, Adolescent or Pediatric 02/08/1997,1995,06/15/1996 MMR 02/07/2002,06/21/1995 Meningococcal C/Y-HIB PRP 06/10/2007 Meningococcal Polysaccharide (Menomune) 06/10/20 07 Td, adsorbed 05/22/2004 Social History Tobacco Use Types Packs/Day Years Used Date Smoking Tobacco: Heavy Smoker Cigarettes 1 19.2 Started: 02/27/2006 Tobacco Cessation:Ready to Q uit: Not Asked; Counseling Given: Not Answered Comments:Smoking History Packs/day: 0.75 Packs Alcohol Use Standard Drinks/Week Comments Yes 0 (1 standard drink = 0.6 oz pur e alcohol) socially Personal Safety Answer Date Recorded Have you ever been in or are you currently in a harmful physical or emotional relationship or is someone making you feel afraid or unsafe? Denies 03/26/2024 Sex and Gender Information Value Date Recorded Sex Assigned at Not on file Legal Sex Male 1:05 PM HOG DRIVER Gender Identity Not on file Sexual Orientation Not on file Last Filed Vital Signs Vital Sign Reading Time Taken Comments Blood Pressure 133/90 08/23/2024 3:00 PM CDT Pulse 85 08/23/2024 3:00 PM CDT Temperature 36.3 C (97.3 F) 08/23/2024 2:07 PM CDT Respiratory Rate 18 08/23/2024 2:07 PM CDT Oxygen Saturation 99% 08/23/2024 3:00 PM CDT Inhaled Oxygen Concentration - - Weight 60.8 kg (134 lb) 08/23/2024 2:07 PM CDT Height 172.7 cm (5' 8) 10/04/2024 2:47 PM HOG DRIVER Body Mass Index 20.37 08/23/2024 2:07 PM CDT Plan of Treatment Not on file Procedures Procedure Name Priority Date/Time Associated Diagnosis Comments SERUM HEPATITIS PANEL Routine 01/01/2017 4:35 AM HOG DRIVER from Last 3 Months or Most Recently Relevant to Health Maintenance Results * Serum Hepatitis panel (01/01/2017 4:35 AM HOG DRIVER) HAV ab, IgM NON-REACTI VE NON-REACTI VE CDR HISTORICAL RESULTS HBV surface ag NON-REACTI VE NON-REACTI VE CDR HISTORICAL RESULTS HBV core ab, IgM NON-REACTI VE NON-REACTI VE CDR HISTORICAL RESULTS HCV ab NON-REACTI VE NON-REACTI VE CDR HISTORICAL RESULTS Hepatitis signal to cutoff ratio 0.01 <1.00 CDR HISTORICAL RESULTS Serum 01/01/2017 4:35 AM HOG DRIVER Narrative CDR HISTORICAL RESULTS - 01/06/2017 3:00 AM HOG DRIVER [facility] [address] [place] [address] Director: KELI HERNANDEZ DO,MPH us Historical Provider LAB BLOOD ORDERABLES Aby ley Result CDR HISTORICAL RESULTS from Last 3 Months or Most Recently Relevant to Health Maintenance Insurance [place] Care Teams 8Th Grade Mathematics Teacher Relationship Specialty Start Date End Date Christy Domínguez PA PCP - General Neurosurgery 05/18/24
--- OUTSIDE RECORDS SUMMARY | 2025-05-11 14:41 | XMS_ITS | Continuity of Care Document ---
Author Organization [facility] Address [address] [place] [address] Phone Care Team Providers Care Beauty Consultant Name Role Phone Zack Cartagena MD Unavailable Unavailable Advance Directives Directive Yes / No Effective Date File Name No Information Encounters Encounter Description Practice Location Reason(s) For Visit Diagnoses Date Provider Providers Copied on Encounter [facility], [address] [place], [place], [id number], [place] tel:[phone] [facility] Professional No Information 6 Mitzi Dixon. [address], [place], [place], [id number], [place]. tel:[phone] Family History Family Member Type Diagnosis Age [...]
--- OUTSIDE RECORDS SUMMARY | 2025-05-11 14:41 | XMS_ITS | Clinical Summary ---
Author Organization [facility] Address [address] [place] [address] Care Team Providers Care Embedded Software Programmer Name Role Phone Christy Domínguez Primary Care [...] Nasal saline spray (Simply saline, Little Remedies, [place], [place]) 2 second sprays or 2 squeezes into [...] 05/18/2024 Assessment & Plan (10/04/2024 3:13 PM WAREHOUSE PULLER): Nasal saline spray (Simply saline, [place] Remedies, [place], [place]) 2 second sprays or 2 squeezes into [...] Nasal saline spray (Simply saline, [place] Remed[place], [place], [place]) 2 second sprays or 2 squeezes into [...] Polysaccharide (Menomune) 06/10/20 07 Td, adsorbed 05/22/2004 Surgical History Surgery Date Site/Laterality Comments TONSILLECTOMY Tonsillectomy OTHER SURGICAL HISTORY R hydrocele TONSILLECTOMY 11/29/2001 - 11/28/2002 Tonsillectomy MULTIPLE TOOTH EXTRACTIONS Tooth Extraction OTHER SURGICAL HISTORY 11/29/2005 - 11/28/2006 Hydrocele & Hernia OTHER SURGICAL HISTORY 11/29/2005 - 11/28/2006 Right Hydrocele & Hernia HERNIA REPAIR 04/21/2017 TEP repair bilateral inguinal hernia & excision biopsy left inguinal mass lymphadenopathy Family History Medical History Relation Name Comments Other Brother 2 Alive and well; Heart disease Brother 3 Heart disease; Other Father Alive and well; Diabetes Maternal Grandmother Diabete s mellitus; Other Mother Alive and well; Diabetes Paternal Grandfather Diabete s mellitus; Diabetes Paternal Grandmother Diabete s mellitus; Relation Name Status Comments Brother 1 Alive Brother 2 Brother 3 Father Alive Maternal Grandmother Mother Alive Paternal Grandfather Paternal Grandmother Social History Tobacco Use Types Packs/Day Years [...] on file Legal Sex Male 1:05 PM WAREHOUSE PULLER Gender Identity Not on file Sexual Orientation Not on file Obstetrics History Last Filed Vital Signs Vital Sign Reading [...] 172.7 cm (5' 8) 10/04/2024 2:47 PM WAREHOUSE PULLER Body Mass Index 20.37 08/23/2024 2:07 PM CDT Plan of Treatment Health Maintenance Due Date Last Done Comments Varicella Vaccines (1 of 2 - 13+ 2-dose series) 2003 DTaP/Tdap/Td Vaccine (1 - Tdap) 05/23/2004 05/22/2004 Regular Well Visit/Exam 18-64 2008 Pneumococcal vaccine <65 (1 of 2 - PCV) 2009 Depression Screening 06/08/2018 06/08/2017 Influenza Vaccine (Season Ended) 2025 Hepatitis B Screening Completed 02/08/1997 , 02/08/1997, 08/16/1996, Additional history exists Hepatitis C Screening Completed 01/01/2017 HPV Vaccines Aged Out No longer eligi ble based on patient's age to complete this topic Procedures Procedure Name Priority Date/Time Associated Diagnosis Comments SERUM HEPATITIS PANEL Routine 01/01/2017 4:35 AM WAREHOUSE PULLER from Last 3 Months or Most Recently Relevant to Health Maintenance Results * Serum Hepatitis panel (01/01/2017 4:35 AM WAREHOUSE PULLER) Pathologist [facility] HAV ab, IgM NON-REACTI VE NON-REACTI VE CDR HISTORICAL RESULTS HBV surface ag NON-REACTI VE NON-REACTI VE CDR HISTORICAL RESULTS HBV core ab, IgM NON-REACTI VE NON-REACTI VE CDR HISTORICAL RESULTS HCV ab NON-REACTI VE NON-REACTI VE CDR HISTORICAL RESULTS Hepatitis signal to cutoff ratio 0.01 <1.00 CDR HISTORICAL RESULTS Serum 01/01/2017 4:35 AM WAREHOUSE PULLER Narrative CDR HISTORICAL RESULTS - 01/06/2017 3:00 AM WAREHOUSE PULLER Test performed at [facility] [place] [address] [place] [address] Director: KELI HERNANDEZ DO,MPH us Historical Provider LAB BLOOD ORDERABLES Aby ley Result CDR HISTORICAL RESULTS from Last 3 Months or Most Recently Relevant to Health Maintenance Insurance [employer] Member Subscriber Plan / Payer (Ef fective 2020-Present) Name:Carter Velasquez Relation to Subscriber:Self Name:Carter Velasquez Payer ID:[id number] (NAIC) Group ID:Not on file Type:MEDICAID RISK OTHER Address: [facility] [address] [place] [id number] Care Teams Embedded Software Programmer Relationship Specialty Start Date End Date Christy Domínguez PA PCP - General Neurosurgery 05/18/24
--- OUTSIDE RECORDS SUMMARY | 2025-05-11 14:41 | XMS_ITS | Clinical Summary ---
Author Organization [facility] Address [address] [place] [address] Phone Care Team Providers Care County Director Welfare Name Role Phone SangAlejandrina louivonne Stafford [facility] Primary Care Pro vider Nahum Mota MD Unavailable Allergies Active Allergy Reactions Criticality Noted Date Comments Amoxicillin Swelling 05/31/2019 Other Other (see Comments) 04/12/2019 Grass, animal dander, bees, garcia, dust, mold Penicillins Anaphylaxis,Rash High 04/12/2019 Sulfa Antibiotics Swelling High 04/12/2019 Reaction: Facial swelling, Medications diphenhydrAMIN E (BENADRYL ALLERGY) 25 MG Capsule 25 mg by Mouth/Throat route 2 times daily as needed. 7 Active ibuprofen (MOTRIN) 200 MG Tablet 200 mg. 7 Active mometasone (ELOCON) 0.1 % Cream 0.1 %. 3 Active hydrocortisone (PROCTOZONE-HC ) 2.5 % Cream Apply to rectum 2-4 times daily as needed. 1 Tube 1 9 Active Additional Information Patient not taking.Reported on 04/05/2024 scopolamine (TRANSDERM-SCO P) 1 MG/3DAYS PATCH 72 HR 1.5 mg patch delivers 1 mg over 3 days; change every 72 hours as needed for motion sickness 5 Patch 1 4 Active fluticasone (FLONASE) 50 MCG/ACT Suspension 1 [place] by Nasal route daily. Use in each nostril as directed. 16 g 1 4 Active EPINEPHrine (EPIPEN) 0.3 MG/0.3ML Solution Auto-injector 0.3 mL by Intramuscular route once as needed for Anaphylaxis. 1 mL 2 4 Active varenicline (CHANTIX) 0.5 MG Tablet TAKE 1 TABLET BY MOUTH DAILY FOR DAYS 1-7 THEN TAKE 2 TABLETS BY MOUTH DAILY THEREAFTER 60 Tablet 4 Active Active Problems Problem Noted Date Diagnosed Date Inguinal hernia without obstruction or gangrene 04/05/2024 Sinus congestion 04/05/2024 Motion sickness 04/05/2024 Annual visit for general blake lt medical examination with abnormal findings 04/13/2019 Bleeding internal hemorrhoids 04/13/2019 Environmental and seasonal allergies 04/13/2019 Eczema 04/13/2019 Left inguinal hernia 03/23/2017 Overview (04/13/2019): Inguinal hernia Left inguinal hernia Hemorrhoids 01/01/2017 Overview (04/13/2019): Hemorrhoids without complication Calculus of kidney 12/01/2010 Overview (04/13/2019): Nephrolithiasis Immunizations Immunization Administration Dates Next Due HIB Meningococcal Combined Vaccine IM 06/10/2007 Hepatitis B Vaccine, Pediatric/adolescent 1996,08/16/1996,06/15/1996 MMR Vaccine 02/07/2002,06/21/1995 TD VACCINE 05/22/2004 Family History Medical History Relation Name Comments No Known Problems Brother 1 Heart Disease Brother 2 Diabetes Father No Known Problems Maternal Grandfather Diabetes Maternal Grandmother Diabetes Maternal Uncle No Known Problems Mother Inflammatory Bowel Disease Paternal Cousin crohns Diabetes Paternal Grandfather Renal Failure Paternal Grandfather Diabetes Paternal Grandmother Diabetes Paternal Uncle No Known Problems Son Relation Name Status Comments Brother 1 Alive Brother 2 Alive Father Alive Maternal Grandfather Maternal Grandmother Maternal Uncle Mother Alive Paternal Cousin Paternal Grandfather Paternal Grandmother Alive Paternal Uncle Son Alive Social History Tobacco Use Types Packs/Day Years Used Date Smoking Tobacco: Every Day Cigarettes 0.8 32.4 Started: 2004 Smokeless Tobacco: Former Quit: 2008 Alcohol Use Standard Drinks/Week Comments Not Currently 0 (1 standard drink = 0.6 oz pur e alcohol) rarely [facility] Utilities Answer Date Recorded In the past 12 months has e electric, gas, oil, or water company threatened to shut off services in your home? No 04/04/2024 Social Connection and Isolation Panel Answer Date Recorded In a typical week, how many times do you talk on the phone with family, friends, or neighbors? More than three times a week 04/04/2024 How often do you get togethe r with friends or relatives? Twice a week 04/04/2024 How often do you attend [facility] or yarsanism services? Patient declined 04/04/2024 Do you belong to any clubs o r organizations such as gnosticism groups, unions, fraternal or athletic groups, or school groups? Yes 04/04/2024 How often do you attend meet ings of the clubs or organizations you belong to? More than 4 times per year 04/04/2024 Are you , , di vorced, , never , or living with a partner? Never 04/04/2024 AUDIT-C Answer Date Recorded Q1: How often do you have a drink containing alcohol? Monthly or less 04/04/2024 Q2: How many drinks containi ng alcohol do you have on a typical day when you are drinking? Patient does not drink Q3: How often do you have si x or more drinks on one occasion? Never 04/04/2024 Overall Financial Resource Strain (CARDIA) Answe r Date Recorded How hard is it for you to pa y for the very basics like food, housing, medical care, and heating? Somewhat hard 04/04/2024 PHQ-2 Answer Date Recorded PHQ-2 Score 1 07/29/2019 [facility] [place] of Occupat ional Health - Occupational Stress Questionnaire Answer Date Recorded Do you feel stress - tense, restless, nervous, or anxious, or unable to sleep at night because your mind is troubled all the time - these days? To some extent 04/04/2024 Exercise Vital Sign Answer Date Recorde d On average, how many days pe r week do you engage in moderate to strenuous exercise (like a brisk walk)? 3 days 04/04/2024 On average, how many minutes do you engage in exercise at this level? 120 min 04/04/2024 Hunger Vital Sign Answer Date Recorded Within the past 12 months, y ou worried that your food would run out before you got the money to buy more. Never true 04/04/20 24 Within the past 12 months, t he food you bought just didn't last and you didn't have money to get more. Never true 04/04/2024 PRAPARE - Transportation Answer Date Re corded In the past 12 months, has l ack of transportation kept you from medical appointments or from getting medications? No 05/2024 In the past 12 months, has l ack of transportation kept you from meetings, work, or from getting things needed for daily living? No 04/04/2024 Housing Stability Vital Sign Answer Ezequiel e Recorded In the last 12 months, was t here a time when you were not able to pay the mortgage or rent on time? No 04/04/2024 In the last 12 months, how many places have you lived? 1 04/04/2024 In the last 12 months, was t here a time when you did not have a steady place to sleep or slept in a alf (including now)? No 04/04/2024 Sexually Active Control Partners Comments Yes Female Sex and Gender Information Value Date Recorded Sex Assigned at Not on file Legal Sex Male 9:53 AM CDT Gender Identity Not on file Sexual Orientation Not on file Last Filed Vital Signs Vital Sign Reading Time Taken Comments Blood Pressure 124/72 05/09/2024 2:35 PM CDT Pulse 83 05/09/2024 2:35 PM CDT Temperature 36.7 C (98 F) 05/09/2024 2:35 PM CDT Respiratory Rate 12 04/05/2024 2:01 PM CDT Oxygen Saturation 99% 05/09/2024 2:35 PM CDT Inhaled Oxygen Concentration - - Weight 58.5 kg (129 lb) 05/09/2024 2:35 PM CDT Height 172.7 cm (5' 8) 05/09/2024 2:35 PM CDT Body Mass Index 19.61 05/09/2024 2:35 PM CDT Plan of Treatment Health Maintenance Due Date Last Done Comments Hepatitis C Virus (HCV) Screening 1990 TdaP Immunization 1990 Human Papillomavirus (HPV) Immunization (1 - Male 3-dose series) 2005 Pneumococcal Immunization Combined (1 of 2 - PCV) 2009 SARS-COV-2 Immunization (1 - 2023- season) 2024 Influenza Immunization (Seas on Ended) 2025 Respiratory Syncytial Virus (RSV) Immunization (Adult) (1 - 1-dose 75+ series) 2065 Hepatitis B Immunization Completed 997, 08/16/1996, 06/15/1996 Meningococcal Immunization (ACWY) Aged Out 06/10/2007 No longer eligible b ased on patient's age to complete this topic Rotavirus Immunization Aged Out No lo nger eligible based on patient's age to complete this topic Insurance MEDICAID [employer] Care Teams County Director Welfare Relationship Specialty Start Date End Date Christy Domínguez PAC [address] [place] [address] PCP - General Physician Lab Assistant 04/05/24 Nahum Mota MD #[address] [address] Consulting Physician Colon and Rectal Surgery 05/02/24
--- OUTSIDE RECORDS SUMMARY | 2025-05-11 14:42 | XMS_ITS | Continuity of Care Document ---
Author Organization [facility] Address [address] [place] [address] Phone Care Team Providers Care End Trimmer Name Role Phone Zack Cartagena MD Unavailable Unavailable Advance Directives Directive Yes / No Effective Date File Name No Information Encounters Encounter Description Practice Location Reason(s) For Visit Diagnoses Date Provider Providers Copied on Encounter [facility], [address], [place], [place], [id number], [place] tel:[phone] [facility] Professional No Information 6 Mitzi Dixon. [address], [place], [place], [id number], [place]. tel:[phone] Family History Family Member Type Diagnosis Age At Onset No Information Payers Payer name Insurance type Covered republican ID Authoriza tion(s) No Information Social History [...]
--- NOTE | 2025-05-11 15:00 | ED.SKABFB ---
HPI - Skin/Abscess/Foreign Bdy General Chief complaint: Skin/Abscess/Foreign Body Stated complaint: Insect Bite Time Seen by Provider: 05/11/25 14:53 Source: patient and RN notes reviewed Mode of arrival: ambulatory Limitations: no limitations History of Present Illness HPI narrative: Patient presents today complaining of a tick bite to the anterior neck that was noted 3 days ago while camping in [place]. He had noticed it the day before but noticed it at the end of the day and it was removed. He believes that the entire tick was removed but can not confirm as his mother removed it. Day by day the area continues to be more red and swollen. States it itches profusely as well. Denies drainage. He tried some Prid salve last night without relief. Related Data Home Medications ?Medication ?Instructions ?Recorded ?Confirmed ?Last Taken ?Type Zyrtec 05/11/25 Unknown History Allergies Allergy/AdvReac Type Severity Reaction Status Date / Time amoxicillin Allergy Severe Anaphylactic Verified 05/11/25 14:46 Shock Penicillins Allergy Severe Anaphylactic Verified 05/11/25 14:46 Shock grass pollen Allergy Unknown Unknown Verified 05/11/25 14:46 Sulfa (Sulfonamide Allergy Unknown Unknown Verified 05/11/25 14:46 Antibiotics) bee stings Allergy Severe sob Uncoded 05/11/25 14:46 wasp stings Allergy Severe shortenss Uncoded 05/11/25 14:46 of breath Review of Systems Review of Systems: CONSTITUTIONAL: Denies body aches, fever, chills, or sweats. EYES: Denies visual changes, redness, or discharge. ENT: Denies rhinorrhea, congestion, sore throat, or otalgia. CARDIOVASCULAR: Denies chest pain, palpitations, or edema. RESPIRATORY: Denies cough or dyspnea. GASTROINTESTINAL: Denies abdominal pain, nausea, vomiting, or diarrhea. GENITOURINARY: Denies dysuria or hematuria. SKIN: + tick bite MUSCULOSKELETAL: Denies back pain, joint pain, or myalgia. NEUROLOGIC: Denies headache, numbness, tingling, or weakness. PSYCH: Denies depression or anxiety. 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 Please see nursing chart for further information. There is no relevant family history pertinent to the presenting complaint Exam Narrative: GENERAL: Well-appearing, well-nourished, and in no acute distress. HEAD: Normocephalic, atraumatic. EYES: EOMI. No redness or drainage. Conjunctivae normal. ENT: Mucous membranes pink and moist.. NECK: Normal AROM. CHEST: No respiratory distress. EXTREMITIES: Normal range of motion. No edema. SKIN: Warm, dry, no rash. Capillary refill normal. Normal skin turgor. Scabbed lesions surrounded in erythema and mild localized swelling measuring approx 5x2cm to the mid anterior neck that is mildly tender to palpation. No fluctuance noted. Mild surrounding induration. NEURO: No focal deficits. Alert and oriented x3. Gait steady. PSYCH: Normal affect. No signs of depression or anxiety. Course Course Emergency Course: Scab removed with needle tip. No foreign body noted. Bandaid applied. Level of Care: Express Care Visit Vital Signs Vital signs: Vital Signs Temperature 99.1 F 05/11/25 14:41 Pulse Rate 83 05/11/25 14:41 Respiratory Rate 16 05/11/25 14:41 Blood Pressure 128/79 05/11/25 14:41 Pulse Oximetry 99 05/11/25 14:41 Oxygen Delivery Room Air 05/11/25 14:41 Temperature 99.1 F 05/11/25 14:41 Pulse Rate 83 05/11/25 14:41 Respiratory Rate 16 05/11/25 14:41 Blood Pressure 128/79 05/11/25 14:41 Pulse Oximetry 99 05/11/25 14:41 Oxygen Delivery Room Air 05/11/25 14:41 Reviewed MDM - Skin/Abscess/Foreign Bdy MDM Narrative Medical decision making narrative: Tick was imbedded in the skin for less than 24 hours, so a tick-borne illness is unlikely. Patient is likely having an allergic reaction, however, symptoms continue to worsen so will treat with doxycycline for presumed localized cellulitis as well. Differential Diagnosis Differential diagnosis: Likely abscess of skin or subcutaneous tissue, cellulitis and other (Tick bite) Critical Care Time Critical Care Time Critical Care Time: No Discharge Plan Discharge Clinical Impression: Allergic reaction to insect bite, Cellulitis of neck Patient Disposition: Home Condition: Stable Instructions: Antibiotic Form, Cellulitis (ED), Tick Bite (ED) Additional Instructions: Please take the doxycycline as prescribed. You may also start an antihistamine such as Zyrtec, Claritin, or Abeba for your itching. Follow-up with your PCP next week if symptoms are not improving. Your blood pressure was elevated above 120/80 today at Urgent Care. This puts you above the threshold for follow up. Please schedule a followup visit with your personal physician as soon as possible, for further evaluation and treatment. Even blood pressure exceeding 120/80 may indicate pre-hypertension. Patient Language: German Prescriptions: New doxycycline hyclate 100 mg tablet 100 mg PO BID 7 Days Qty: 14 0RF No Action Zyrtec Follow-up/Referrals: Sang,DENISE [place] [Primary Care Provider] - Time of Disposition: 15:12
== END 2025-05-11 15:19 | disposition home or self-care (01) ==
PROVIDERS: Emergency Provider Nurse Practitioner; PCP Physician Assistant
DX: S10.96XA Insect bite of unspecified part of neck, initial encounter (principal); L03.221 Cellulitis of neck; W57.XXXA Bitten or stung by nonvenomous insect and other nonvenomous arthropods, initial encounter; F17.210 Nicotine dependence, cigarettes, uncomplicated
CPT/HCPCS: 99213; G0463

== ENCOUNTER 2025-08-06 14:01 | Emergency (ER) | payer OTHER, SELFPAY ==
--- OUTSIDE RECORDS SUMMARY | 2006-10-13 08:15 | XMS_ITS | Continuity of Care Document ---
Author Organization [facility] Address 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 [address] [facility] [place], [id number], [place]. tel:[phone] Family History Family Member Type Diagnosis Age At Onset No Information Payers Payer name Insurance type Covered constitution party ID Authoriza tion(s) No Information Social History Type Description Quantity Date Captured Comments Sex Male Smoking Status No Information Chief Complaint And Reason For Visit No Information Reason For Referral Reason For Referral No Information History Of Present Illness Encounter Date Complaint History Of Prese nt Illness No Information Functional Status Date Functional Assessmen t No Information Instructions Date Instruction Additional Infor mation No Information Assessments Type Assessment Date No Information Patient Care Teams Name Effective Dates (start - stop) Status Members No Information
--- OUTSIDE RECORDS SUMMARY | 2006-10-13 08:15 | XMS_ITS | Continuity of Care Document ---
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 [address] [facility] [place], [address], [place]. tel:[phone] Family History Family Member Type Diagnosis Age At Onset No Information Payers Payer name Insurance type Covered democrat ID Authoriza tion(s) No Information Social History [...]
--- NOTE | ~2025-08-06 | XR_ITS ---
XR forearm LT 2V 08/06/2025 14:39 INDICATION: Left arm pain PROCEDURE: 2 views left forearm COMPARISON: No prior studies for comparison. FINDINGS: Fracture, dislocation or subluxation is not identified. The soft tissues appear within normal limits. No foreign bodies are identified. IMPRESSION: 1: NO ACUTE BONE OR JOINT ABNORMALITY IDENTIFIED. Reviewed, dictated and finalized at location O.
[2025-08-06 14:04] VITALS: BP 147/78; PULSE 96; RESP 18; TEMP 37.1; O2SAT 99
--- OUTSIDE RECORDS SUMMARY | 2025-08-06 14:04 | XMS_ITS | Clinical Summary ---
Author Organization [facility] Address [address] [place] [address] Care Team Providers Care Joint Runner Name Role Phone Christy Domínguez Primary Care [...] Nasal saline spray (Simply saline, Little Remedies, Laporte, Bimble) 2 second sprays or 2 squeezes into [...] 05/18/2024 Assessment & Plan (10/04/2024 3:13 PM [facility] KAY STITCHER): Nasal saline spray (Simply saline, Little Remedies, [place], Bimble) 2 second sprays or 2 squeezes into [...] Nasal saline spray (Simply saline, Little Remedies, [place], Bimble) 2 second sprays or 2 squeezes into [...] Date Smoking Tobacco: Heavy Smoker Cigarettes 1 19.4 Started: 02/27/2006 Tobacco Cessation:Ready to Q uit: [...] on file Legal Sex Male 1:05 PM [facility] Gender Identity Not on file Sexual Orientation [...] 172.7 cm (5' 8) 10/04/2024 2:47 PM [facility] Body Mass Index 20.37 08/23/2024 2:07 PM CDT Plan of Treatment Health Maintenance Due Date Last Done Comments Varicella Vaccines (1 of 2 - 13+ 2-dose series) 2003 DTaP/Tdap/Td Vaccine (1 - Tdap) 05/23/2004 4 Regular Well Visit/Exam 18-64 2008 Pneumococcal vaccine <65 (1 of 2 - PCV) 2009 HPV Vaccines (1 - 3-dose SCD M series) 2017 Depression Screening 06/08/2018 06/08/2017 Influenza Vaccine (#1) 2025 Hepatitis B Screening Completed 02/08/1997 , 02/08/1997, 08/16/1996, Additional history exists Hepatitis C Screening Completed 01/01/2017 Procedures Procedure Name Priority Date/Time Associated Diagnosis Comments SERUM HEPATITIS PANEL Routine 01/01/2017 4:35 AM [facility] ST[facility]ER from Last 3 Months or Most Recently Relevant to Health Maintenance Results * Serum Hepatitis panel (01/01/2017 4:35 AM [facility] KAY STITCHER) Pathologist [facility] HAV ab, IgM NON-REACTI VE NON-REACTI VE CDR HISTORICAL RESULTS HBV surface ag NON-REACTI VE NON-REACTI VE CDR HISTORICAL RESULTS HBV core ab, IgM NON-REACTI VE NON-REACTI VE CDR HISTORICAL RESULTS HCV ab NON-REACTI VE NON-REACTI VE CDR HISTORICAL RESULTS Hepatitis signal to cutoff ratio 0.01 <1.00 CDR HISTORICAL RESULTS Serum 01/01/2017 4:35 AM [facility] ST[facility]ER Narrative CDR HISTORICAL RESULTS - 01/06/2017 3:00 AM [facility] Test performed at [facility] [address] [address] [place] [address] Director: KELI HERNANDEZ DO,MPH us Historical Provider LAB BLOOD ORDERABLES Aby ley Result CDR HISTORICAL RESULTS from Last 3 Months or Most Recently Relevant to Health Maintenance [place] [employer] [place] [employer] Care Teams Joint Runner Relationship Specialty Start Date End Date Christy Domínguez PA PCP - General Neurosurgery 05/18/24
--- OUTSIDE RECORDS SUMMARY | 2025-08-06 14:04 | XMS_ITS | Clinical Summary ---
Author Organization [facility] Address [address] [place] [address] Phone Care Team Providers Care Cupola Repairer Name Role Phone Sang Christy Stafford [facility] Primary Care Pro vider Nahum Mota [...] Active fluticasone (FLONASE) 50 MCG/ACT Suspension 1 [place] by Nasal route daily. Use in each [...] Date Smoking Tobacco: Every Day Cigarettes 0.8 32.7 Started: 2004 Smokeless Tobacco: Former Quit: 2007 Alcohol Use Standard Drinks/Week Comments Not Currently 0 (1 standard drink = 0.6 oz pur e alcohol) rarely [facility] Utilities Answer Date Recorded In the [...] week 04/04/2024 How often do you attend [facility] or baptist services? Patient declined 04/04/2024 Do you belong to any clubs o r organizations such as islam groups, unions, fraternal or athletic groups, or [...] Answer Date Recorded PHQ-2 Score 1 07/29/2019 [facility] [place] of Occupat ional Health - Occupational Stress [...] place to sleep or slept in a prison (including now)? No 04/04/2024 Sexually Active Control [...] Virus (HCV) Screening 1990 TdaP Immunization 1990 Pneumococcal Immunization Combined (1 of 2 - PCV) 2009 Human Papillomavirus (HPV) Immunization (1 - 3-dose SCDM series) 2017 Influenza Immunization (#1) 2025 SARS-COV-2 Immunization (1 - 2023- season) 2025 Respiratory Syncytial Virus (RSV) Immunization (Adult) (1 - 1-dose 75+ series) 2065 Hepatitis B Immunization Completed 997, 08/16/1996, 06/15/1996 Meningococcal Immunization (ACWY) Aged Out 06/10/2007 No longer eligible b ased on patient's age to complete this topic Rotavirus Immunization Aged Out No lo nger eligible based on patient's age to complete this topic Insurance MEDICAID [employer] Care Teams Cupola Repairer Relationship Specialty Start Date End Date Christy Domínguez PAC PCP - General Physician Early Interventionist 04/05/24 Nahum Mota MD [address] [place] [address] Consulting Physician Colon and Rectal Surgery 05/02/24
--- NOTE | 2025-08-06 14:25 | ED_ITS ---
HPI - Extremity Injury (Upper) General Chief Complaint: Extremity Injury, Upper Stated Complaint: Left arm injury Time Seen by Provider: 08/06/25 14:25 Source: patient Mode of arrival: ambulatory Limitations: no limitations History of Present Illness HPI narrative: Carter is a 35-year-old male patient presenting to the clinic today with complaints of left forearm pain. He reports he fell on Wednesday when some puppies tripped him and he hit his arm on a case of soda. Is having pain to the mid/proximal forearm. Tried lifting a 5 lb weight today and it hurt so he thought he needed to come in and be evaluated. Has not taken anything for his symptoms. Related Data Home Medications ?Medication ?Instructions ?Recorded ?Confirmed ?Last Taken ?Type Zyrtec 05/11/25 Unknown History Allergies Allergy/AdvReac Type Severity Reaction Status Date / Time amoxicillin Allergy Severe Anaphylactic Verified 08/06/25 14:13 Shock Penicillins Allergy Severe Anaphylactic Verified 08/06/25 14:13 Shock grass pollen Allergy Unknown Unknown Verified 08/06/25 14:13 Sulfa (Sulfonamide Allergy Unknown Unknown Verified 08/06/25 14:13 Antibiotics) bee stings Allergy Severe sob Uncoded 05/11/25 14:46 wasp stings Allergy Severe shortenss Uncoded 05/11/25 14:46 of breath Review of Systems Review of Systems: Pertinent positives per HPI. Patient denies any fever, chills, rash, headache, visual changes, dizziness, cough, runny nose, sore throat, shortness of breath, chest pain, palpitations, nausea, vomiting, diarrhea, constipation, abdominal pain, or any urinary issues. [facility] Past Medical History Medical History Tobacco abuse Seasonal allergies History of dental problems Surgical History Surgical History Hx of hemorrhoidectomy History of tonsillectomy and adenoidectomy History of inguinal hernia repair, bilateral Family History Family History Mother Family history non-contributory Social History Social History Smoking packs per day: 1 Smoking cigarettes per day: 20.0 Years smoked: 16 Smoking pack-years: 16.00 Smoking status: Current every day smoker Tobacco type: cigarettes Alcohol intake: current Alcohol use details: social Substance use type: former 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 There is no relevant family history pertinent to the patient complaint. Exam Narrative: General: Well-developed, well nourished, in no apparent distress Head: Normocephalic, atraumatic. Cardio: Regular rate and rhythm, s1 and s2 normal, no murmur appreciated. Resp: Clear to auscultation bilaterally, no rhonchi, rales, wheezing or rubs. Musculoskeletal: No deformity, tender to palpation over the mid proximal forearm with pain radiating up into the elbow and down into the wrist, old bruising noted to the left forearm, grossly normal range of motion, muscle strength strong and equal, peripheral pulse strong, no edema, no cyanosis, normal gait and station Course Course Emergency Course: Portions of this record may have been created with voice recognition software. Level of Care: Express Care Visit Vital Signs Vital signs: Vital Signs Temperature 37.1 C 08/06/25 14:04 Pulse Rate 96 08/06/25 14:04 Respiratory Rate 18 08/06/25 14:04 Blood Pressure 147/78 H 08/06/25 14:04 Pulse Oximetry 99 08/06/25 14:04 Oxygen Delivery Room Air 08/06/25 14:04 Temperature 37.1 C 08/06/25 14:04 Pulse Rate 96 08/06/25 14:04 Respiratory Rate 18 08/06/25 14:04 Blood Pressure 147/78 H 08/06/25 14:04 Pulse Oximetry 99 08/06/25 14:04 Oxygen Delivery Room Air 08/06/25 14:04 Vital signs reviewed MDM - Extremity Injury (Upper) MDM Narrative Medical decision making narrative: At the time of visit patient is resting comfortably on the exam table. Patient appears to be nontoxic. Complaints of left forearm pain. He reports he fell on Wednesday when some puppies tripped him and he hit his arm on a case of soda. Is having pain to the mid/proximal forearm. Tried lifting a 5 lb weight today and it hurt so he thought he needed to come in and be evaluated. Has not taken anything for his symptoms. X-ray of the left forearm was order. Diagnostics: X-ray of the left forearm was performed and negative for any sign of fracture or malalignment. Plan: I suspect patient has a left forearm contusion. Supportive measures were discussed with the patient and they voiced understanding discharge instructions and agrees to treatment plan. Return precautions reviewed Differential Diagnosis Differential diagnosis: Likely other (Radial fracture, ulnar fracture, contusion, soft tissue injury) Imaging Data Radiologist's impression: ITS Impressions Forearm X-Ray 08/06/25 14:42 IMPRESSION: 1: NO ACUTE BONE OR JOINT ABNORMALITY IDENTIFIED. Discharge Plan Discharge Clinical Impression: Contusion of forearm, left Qualifiers: Encounter type: initial encounter Qualified Code(s): S50.12XA - Contusion of left forearm, initial encounter Patient Disposition: Home Condition: Stable Instructions: Antibiotic Form, Contusion in Adults (ED) Additional Instructions: X-rays negative for any sign fracture or malalignment of the left elbow, forearm, or wrist. Rest, ice, and elevate Tylenol/motrin for pain as discussed. Follow up with your PCP if symptoms persist more than 1 week. Patient Language: Citizen Of [place] Prescriptions: No Action Zyrtec doxycycline hyclate 100 mg tablet 100 mg PO BID 7 Days Qty: 14 0RF Follow-up/Referrals: Sang,DENISE Harrison [Primary Care Provider, Unknown] Time of Disposition: 14:55 Quality NIHSS Nursing Documentation ED NIHSS nursing documentation: reviewed/agree
== END 2025-08-06 14:56 | disposition home or self-care (01) ==
PROVIDERS: Emergency Provider Nurse Practitioner Family; PCP Physician Assistant
DX: S50.12XA Contusion of left forearm, initial encounter (principal); W01.0XXA Fall on same level from slipping, tripping and stumbling without subsequent striking against object, initial encounter; F17.210 Nicotine dependence, cigarettes, uncomplicated
CPT/HCPCS: 73090; 99213; G0463